=== PATIENT | male | born 1975 | race Hispanic/Latino ===

== ENCOUNTER 2017-12-12 14:36 | Inpatient (IN) | payer SELFPAY ==
[2017-12-12 15:30] LABS: Basophils % (Auto) 0.7 % (0.0-1.8); Hematocrit 47.4 % (35.5-45.6); Hemoglobin 16.5 gm/dl (11.8-15.2); Lymphocytes # (Auto) 0.8 K/mm3 (1.2-5.4); Lymphocytes % (Auto) 16.7 % (13.4-35.0); Mean Corpuscular HGB Conc 35 % (32-34); Mean Corpuscular Hemoglobin 32 pg (28-32); Mean Corpuscular Volume 92 fl (84-94); Monocytes # (Auto) 0.3 K/mm3 (0.0-0.8); Monocytes % (Auto) 5.2 % (0.0-7.3); Platelet Count 215 K/mm3 (140-440); Red Blood Count 5.17 M/mm3 (3.65-5.03)
[2017-12-12 15:42] LABS: INR 0.82 (0.87-1.13)
[2017-12-12 15:43] LABS: Partial Thromboplastin Time 27.8 Sec. (24.2-36.6)
[2017-12-12 15:44] LABS: Creatine Kinase MB 17.4 ng/mL (0.0-4.0)
[2017-12-12 15:45] LABS: Alanine Aminotransferase 37 units/L (7-56); Albumin 4.5 g/dL (3.9-5); BUN/Creatinine Ratio 6; Bilirubin,Direct 0.2 mg/dL (0-0.2); Blood Urea Nitrogen 4 mg/dL (9-20); Calcium 8.1 mg/dL (8.4-10.2); Hemolysis Index 8
[2017-12-12 15:47] LABS: Bilirubin,Urine NEG (Negative); Blood,Urine SM (Negative); Color,Urine Straw (Yellow); Protein,Urine <15 mg/dL mg/dL (Negative); Urobilinogen,Urine < 2.0 mg/dL (<2.0)
[2017-12-12 15:48] LABS: Amphetamine Screen,Urine PRESUMPTIVE NEGATIVE; Benzodiazepines Screen,Urine PRESUMPTIVE NEGATIVE; Cannabinoid Screen,Urine PRESUMPTIVE NEGATIVE; Cocaine Screen,Urine PRESUMPTIVE NEGATIVE; Methadone Screen,Urine PRESUMPTIVE NEGATIVE; Opiate Screen,Urine PRESUMPTIVE NEGATIVE
[2017-12-12] MEDS: VITAMIN B-1 PO SCH (16:10)
[2017-12-12] MEDS ORDERED: FOLVITE 1 MG, INFUVITE 10 ML in NACL 0.9% 1000 ML 1,000 ML IV ONE (16:20)
[2017-12-12] MEDS ORDERED: NACL 0.9% 1000 ML 1,000 ML IV ONE (16:34)
[2017-12-12] MEDS ORDERED: GEODON IM ONE (16:36)
--- NOTE | 2017-12-12 17:11 | Emergency Department Report ---
ED General Adult HPI - General Chief complaint: Alcohol Stated complaint: DRUNK Time Seen by Provider: 12/12/17 15:06 Source: patient, EMS Mode of arrival: Stretcher Limitations: Other - History of Present Illness Initial comments: Limited information is available on this patient as he is obviously intoxicated with alcohol. Apparently he lives in a wholesale room for the last 5 days drinking cases of beer. He does not have any specific complaints on my encounter. -: days(s) - Related Data Allergies Allergy/AdvReac Type Severity Reaction Status Date / Time No Known Allergies Allergy Unverified 12/12/17 14:48 ED Review of Systems ROS: Stated complaint: DRUNK Other details as noted in HPI Constitutional: denies: chills, fever Eyes: denies: eye pain, eye discharge, vision change ENT: denies: ear pain, throat pain Respiratory: denies: cough, wheezing Cardiovascular: denies: chest pain, palpitations Endocrine: no symptoms reported Gastrointestinal: denies: abdominal pain, nausea, diarrhea Genitourinary: denies: urgency, dysuria Musculoskeletal: denies: back pain, joint swelling, arthralgia Skin: denies: rash, lesions Neurological: headache (family told the nurse he had a [id number] headache ). denies: weakness, paresthesias Psychiatric: other (Limited secondary to alcohol intoxication) Hematological/Lymphatic: denies: easy bleeding, easy bruising ED Past Medical Hx - Past Medical History Previous Medical History?: Yes Hx Hypertension: Yes Hx HIV: Yes - Social History Smoking Status: Never Smoker Substance Use Type: Alcohol ED Physical Exam - General Limitations: Other General appearance: alert (abdomen alert and agitated poorly cooperative) - Head Head exam: Present: atraumatic, normocephalic - Eye Eye exam: Present: normal appearance, PERRL, EOMI. Absent: scleral icterus - ENT ENT exam: Present: mucous membranes moist - Neck Neck exam: Present: normal inspection. Absent: tenderness, meningismus - Respiratory Respiratory exam: Present: normal lung sounds bilaterally. Absent: respiratory distress - Cardiovascular Cardiovascular Exam: Present: regular rate, normal rhythm. Absent: systolic murmur, diastolic murmur, rubs, gallop - GI/Abdominal GI/Abdominal exam: Present: soft, normal bowel sounds. Absent: distended, tenderness, guarding, rebound, rigid - Rectal Rectal exam: Present: deferred - Extremities Exam Extremities exam: Present: normal inspection, normal capillary refill. Absent: tenderness, calf tenderness - Back Exam Back exam: Present: normal inspection. Absent: CVA tenderness (R), CVA tenderness (L), muscle spasm, paraspinal tenderness, vertebral tenderness - Neurological Exam Neurological exam: Present: alert, oriented X3, CN II-XII intact. Absent: motor sensory deficit - Psychiatric Psychiatric exam: Present: normal affect, normal mood - Skin Skin exam: Present: warm, dry, intact, normal color. Absent: rash ED Course Vital Signs 12/12/17 12/12/17 12/12/17 14:40 14:45 15:00 Temperature 98 F Pulse Rate 93 H Respiratory 16 Rate Blood Pressure 143/96 143/96 O2 Sat by Pulse 97 98 97 Oximetry 12/12/17 12/12/17 12/12/17 15:30 16:00 16:30 Temperature Pulse Rate Respiratory Rate Blood Pressure 143/96 143/96 134/87 O2 Sat by Pulse 94 98 95 Oximetry 12/12/17 12/12/17 12/12/17 16:56 17:00 17:30 Temperature Pulse Rate Respiratory 16 Rate Blood Pressure 137/90 145/93 O2 Sat by Pulse 98 97 97 Oximetry 12/12/17 12/12/17 18:01 18:33 Temperature Pulse Rate Respiratory Rate Blood Pressure 145/92 O2 Sat by Pulse 96 97 Oximetry - Reevaluation(s) Reevaluation #1: The patient was found have a mildly elevated CK which I do think is very consequential. His sodium was 128. He is somewhat volume depleted. He is going to receive normal saline and have his electrolytes checked again after a liter. We will see if he qualifies for medical admission. If he is medically cleared he is now 2013 (1013) status. Mental counselor will see him. He has been very poorly cooperative with nursing staff. He certainly cannot care for himself and requires treatment of his hyponatremia. He was given Geodon to enhance his cooperation. 12/12/17 17:12 Reevaluation #2: Patient required continued medical restraint. CT of his head was performed due to complaints of headache. I did not see anything acute. He will be admitted by Dr. Bonilla to the hospitalist service. His repeat sodium had improved somewhat to 130. 12/12/17 19:02 Reevaluation #3: A 1013 was executed. 12/12/17 19:03 ED Medical Decision Making - Lab Data Result diagrams: 12/12/17 15:24 12/12/17 17:15 Laboratory Results - last 24 hr 12/12/17 12/12/17 12/12/17 14:54 15:24 15:24 WBC 5.1 RBC 5.17 H Hgb 16.5 H Hct 47.4 H MCV 92 MCH 32 MCHC 35 H RDW 13.0 L Plt Count 215 Lymph % (Auto) 16.7 [place] % (Auto) 5.2 Eos % (Auto) 0.0 Baso % (Auto) 0.7 Lymph # 0.8 L [place] # 0.3 Eos # 0.0 Baso # 0.0 Seg Neutrophils % 77.4 H Seg Neutrophils # 3.9 PT 11.7 L INR 0.82 L APTT 27.8 Sodium Potassium Chloride Carbon Dioxide Anion Gap BUN Creatinine Estimated GFR BUN/Creatinine Ratio Glucose Calcium Magnesium Total Bilirubin Direct Bilirubin Indirect Bilirubin AST ALT Alkaline Phosphatase Total Creatine Kinase CK-MB (CK-2) CK-MB (CK-2) Rel Index Total Protein Albumin Albumin/Globulin Ratio Urine Color Urine Turbidity Urine pH Ur Specific [place] Urine Protein Urine Glucose (UA) Urine Ketones Urine Blood Urine Nitrite Urine Bilirubin Urine Urobilinogen Ur Leukocyte Esterase Urine WBC (Auto) Urine RBC (Auto) Urine Opiates Screen Urine Methadone Screen Ur Barbiturates Screen Ur Phencyclidine Scrn Ur Amphetamines Screen U Benzodiazepines Scrn Urine Cocaine Screen U Marijuana (THC) Screen Drugs of Abuse Note Plasma/Serum Alcohol 0.38 H 12/12/17 12/12/17 12/12/17 15:24 15:30 15:30 WBC RBC Hgb Hct MCV MCH MCHC RDW Plt Count Lymph % (Auto) [place] % (Auto) Eos % (Auto) Baso % (Auto) Lymph # [place] # Eos # Baso # Seg Neutrophils % Seg Neutrophils # PT INR APTT Sodium 128 L Potassium 4.0 Chloride 86.1 L Carbon Dioxide 25 Anion Gap 21 BUN 4 L Creatinine 0.7 L Estimated GFR > 60 BUN/Creatinine Ratio 6 Glucose 112 H Calcium 8.1 L Magnesium 1.90 Total Bilirubin 0.80 Direct Bilirubin 0.2 Indirect Bilirubin 0.6 AST 50 H ALT 37 Alkaline Phosphatase 64 Total Creatine Kinase 794 H CK-MB (CK-2) 17.4 H CK-MB (CK-2) Rel Index 2.1 Total Protein 6.9 Albumin 4.5 Albumin/Globulin Ratio 1.9 Urine Color Straw Urine Turbidity Clear Urine pH 7.0 Ur Specific [place] 1.003 Urine Protein <15 mg/dl Urine Glucose (UA) Neg Urine Ketones Tr Urine Blood Sm Urine Nitrite Neg Urine Bilirubin Neg Urine Urobilinogen < 2.0 Ur Leukocyte Esterase Neg Urine WBC (Auto) 1.0 Urine RBC (Auto) 2.0 Urine Opiates Screen Presumptive negative Urine Methadone Screen Presumptive negative Ur Barbiturates Screen Presumptive negative Ur Phencyclidine Scrn Presumptive negative Ur Amphetamines Screen Presumptive negative U Benzodiazepines Scrn Presumptive negative Urine Cocaine Screen Presumptive negative U Marijuana (THC) Screen Presumptive negative Drugs of Abuse Note Disclamer Plasma/Serum Alcohol - Radiology Data Radiology results: report reviewed (CT head no acute process) Critical care attestation.: If time is entered above; I have spent that time in minutes in the direct care of this critically ill patient, excluding procedure time. ED Disposition Clinical Impression: Alcohol abuse, Hyponatremia, Volume depletion, Delirium due to medical condition with behavioral disturbance Alcohol intoxication Qualifiers: Complication of substance-induced condition: with unspecified complication Qualified Code(s): F10.929 - Alcohol use, unspecified with intoxication, unspecified Disposition: DC-09 OP ADMIT IP TO THIS HOSP Is pt being admited?: Yes Does the pt Need Aspirin: Yes Condition: Stable Referrals: PRIMARY CARE, [Primary Care Provider] - 3-5 Days Time of Disposition: 19:04
[2017-12-12 17:50] LABS: BUN/Creatinine Ratio 5; Blood Urea Nitrogen 3 mg/dL (9-20); Calcium 8.1 mg/dL (8.4-10.2); Hemolysis Index 17
--- NOTE | 2017-12-12 18:33 | Cat Scan Report ---
FINAL REPORT EXAM: CT HEAD/BRAIN WO CON HISTORY: headache COMPARISON: None available. TECHNIQUE: Axial images obtained skull base through vertex. FINDINGS: No acute intracranial hemorrhage, midline shift or pathologic extra axial fluid collection. Ventricles and cisterns are normal in size and configuration for the patient's age. Perdomo-white differentiation preserved. Calvarium grossly intact. Ocular globes are grossly unremarkable. Minimal mucosal thickening the paranasal sinuses. Mastoid air cells are clear. IMPRESSION: No grossly acute intracranial abnormality.
[2017-12-12] MEDS ORDERED: PROVENTIL IH PRN (18:47)
[2017-12-12] MEDS ORDERED: DULCOLAX PR PRN (18:47)
[2017-12-12] MEDS ORDERED: MILK OF MAGNESIA PO PRN (18:47)
--- NOTE | 2017-12-12 18:59 | History and Physical Report ---
History of Present Illness Chief complaint: confused History of present illness: 42 YO Male with HIV, HTN, ETOH Abuse presents to ED for evaluation. Pt confused , and unable to provide history, but patient is able to protect his airway. Pt history taken from EMS and ED staff. As per EMS, patient has been binge drinking beer. Pt was found in his hotel room confused and lethargic, with 5 cases of empty beer cans. Pt transported to [facility] for further care and evaluation. No reports of fever, chills, CP, palpitations, NVD, Syncope, trauma , or recent ill contacts. Pt seen and evaluated in ED and found to have Encephalopathy, and well as ETOH Intoxication Delirium. Pt placed on 1013 and 1: 1 sitter assigned. Pt initiated on CIWA protocol. No psychiatric evaluation at this time. Past History Past Medical History: HIV/AIDS, hypertension Past Surgical History: No surgical history, Other (reviewed) Social history: single Family history: no significant family history (reviewed) Medications and Allergies Allergies Allergy/AdvReac Type Severity Reaction Status Date / Time No Known Allergies Allergy Unverified 12/12/17 14:48 Active Meds: Active Medications Acetaminophen (Tylenol) 650 mg PO Q4H PRN PRN Reason: Pain MILD(1-3)/Fever >100.5/SOLITARIO Albuterol (Proventil) 2.5 mg IH Q4HRT PRN PRN Reason: Shortness Of Breath Bisacodyl (Dulcolax) 10 mg MI QDAY PRN PRN Reason: Constipation unrelieved by MOM Folic Acid 1 mg/ Multivitamins /Minerals 10 ml/ Sodium Chloride 1,010.2 mls @ 250 mls/hr IV ONCE.ED ONE Stop: 12/12/17 20:22 Last Admin: 12/12/17 16:10 Dose: 250 mls/hr Lorazepam (Ativan) 2 mg IV Q1H PRN PRN Reason: CIWA-Ar 8-15 Magnesium Hydroxide (Milk Of Magnesia) 30 ml PO Q4H PRN PRN Reason: Constipation Ondansetron HCl (Zofran) 4 mg IV Q8H PRN PRN Reason: N/V unrelieved by Reglan Thiamine HCl (Vitamin B-1) 100 mg PO QDAY [facility] Last Admin: 12/12/17 16:10 Dose: 100 mg Review of Systems ROS unobtainable: due to mental status Exam - Constitutional Vitals: Temp Pulse Resp BP Pulse Ox 98 F 93 H 16 145/92 97 12/12/17 14:45 12/12/17 14:45 12/12/17 16:56 12/12/17 18:33 12/12/17 18:33 General appearance: Present: mild distress, disheveled - EENT Eyes: Present: PERRL ENT: hearing intact, clear oral mucosa - Neck Neck: Present: supple, normal ROM - Respiratory Respiratory effort: normal Respiratory: bilateral: CTA - Cardiovascular Heart Sounds: Present: S1 & S2. Absent: rub, click - Extremities Extremities: pulses symmetrical, No edema Peripheral Pulses: within normal limits - Abdominal General gastrointestinal: Present: soft, non-tender, non-distended, normal bowel sounds Male genitourinary: Present: normal - Integumentary Integumentary: Present: clear, dry, clammy, decreased turgor - Musculoskeletal Musculoskeletal: gait normal, strength equal bilaterally - Psychiatric Psychiatric: no appropriate mood/affect, no intact judgment & insight, no memory intact, no cooperative, agitated - Neurologic Neurologic: CNII-XII intact, moves all extremities Results - Labs CBC & Chem 7: 12/12/17 15:24 12/12/17 17:15 Labs: Abnormal lab results 12/12/17 12/12/17 12/12/17 Range/Units 14:54 15:24 15:24 RBC 5.17 H (3.65-5.03) M/mm3 Hgb 16.5 H (11.8-15.2) gm/dl Hct 47.4 H (35.5-45.6) % MCHC 35 H (32-34) % RDW 13.0 L (13.2-15.2) % Lymph # 0.8 L (1.2-5.4) K/mm3 Seg Neutrophils % 77.4 H (40.0-70.0) % PT 11.7 L (12.2-14.9) Sec. INR 0.82 L (0.87-1.13) Sodium (137-145) mmol/L Chloride (98-107) mmol/L BUN (9-20) mg/dL Creatinine (0.8-1.5) mg/dL Glucose (75-100) mg/dL Calcium (8.4-10.2) mg/dL AST (5-40) units/L Total Creatine Kinase (55-170) units/L CK-MB (CK-2) (0.0-4.0) ng/mL Plasma/Serum Alcohol 0.38 H (0-0.07) % 12/12/17 12/12/17 Range/Units 15:24 17:15 RBC (3.65-5.03) M/mm3 Hgb (11.8-15.2) gm/dl Hct (35.5-45.6) % MCHC (32-34) % RDW (13.2-15.2) % Lymph # (1.2-5.4) K/mm3 Seg Neutrophils % (40.0-70.0) % PT (12.2-14.9) Sec. INR (0.87-1.13) Sodium 128 L 130 L (137-145) mmol/L Chloride 86.1 L 89.3 L (98-107) mmol/L BUN 4 L 3 L (9-20) mg/dL Creatinine 0.7 L 0.6 L (0.8-1.5) mg/dL Glucose 112 H 112 H (75-100) mg/dL Calcium 8.1 L 8.1 L (8.4-10.2) mg/dL AST 50 H (5-40) units/L Total Creatine Kinase 794 H (55-170) units/L CK-MB (CK-2) 17.4 H (0.0-4.0) ng/mL Plasma/Serum Alcohol (0-0.07) % Assessment and Plan - Patient Problems (1) Alcohol intoxication delirium Current Visit: Yes Status: Acute Plan to address problem: CIWA protocol, IVF resuscitation, banana bag, Neuro checks, aspiration precautions, seizure precautions. [address], 1:1 sitter (2) Encephalopathy Current Visit: Yes Status: Acute Plan to address problem: CT Head, Neuro checks, IVF resuscitation, (3) HIV disease Current Visit: Yes Status: Acute Plan to address problem: CT head, supportive care, Outpatient ID F/U (4) HTN (hypertension) Current Visit: Yes Status: Acute Qualifiers: Hypertension type: essential hypertension Qualified Code(s): I10 - Essential (primary) hypertension Plan to address problem: monitor bp q shift, (5) Hyponatremia Current Visit: Yes Status: Acute Plan to address problem: IVF resuscitation, monitor uop q shift, serial bmp, (6) DVT prophylaxis Current Visit: Yes Status: Acute
[2017-12-12] MEDS ORDERED: BABY ASPIRIN PO ONE (19:04)
[2017-12-12] MEDS ORDERED: VITAMIN B-1 100 MG, FOLVITE 1 MG, INFUVITE 10 ML in NACL 0.9% 1000 ML 1,000 ML IV ONE (19:17)
[2017-12-12] MEDS: NACL 0.9% 1000 ML 1,000 ML IV ONE ×2 (19:22→20:00)
[2017-12-12] MEDS: ATIVAN IV PRN ×3 (19:22→23:31)
[2017-12-12] MEDS: ZOFRAN IV PRN (19:31)
--- NOTE | 2017-12-12 19:42 | XRay Report ---
FINAL REPORT EXAM: XR CHEST 1V AP HISTORY: hypertension COMPARISON: None available. FINDINGS: Frontal view(s) of the chest obtained. Cardiac silhouette within normal limits. No gross consolidation or effusion. No pneumothorax. IMPRESSION: No grossly acute findings.
[2017-12-12] MEDS ORDERED: ATIVAN ONE (20:33)
[2017-12-12] MEDS: TYLENOL PO PRN (23:29)
[2017-12-13] MEDS: ATIVAN IV PRN ×6 (01:31→20:34)
[2017-12-13] MEDS: TYLENOL PO PRN ×2 (06:05→20:32)
[2017-12-13 06:39] LABS: BUN/Creatinine Ratio 7; Blood Urea Nitrogen 5 mg/dL (9-20); Calcium 8.3 mg/dL (8.4-10.2); Hemolysis Index 7
--- NOTE | 2017-12-13 08:45 | Progress Note ---
Assessment and Plan Assessment and plan: Acute alcohol intoxication. patient admitted to med/surg floor. Neurochecks, supportive care. he is on CIWA protocol. Ativan for CIWA. HIV/AIDS. Details unclear. Hyponatremia. This is now resolved. Continue iv fluids Hypertension. On Lopressor BID. BP stable DVT prophylaxis with heparin subcut. History Interval history: Anxious, no chest pain, no fever Hospitalist Physical - Physical exam Narrative exam: Gen appearance: Not in acute distress, lying in bed HEENT:Normocephalic,atraumatic Neck:supple, no JVD Lungs: Clear to auscultation bilaterally, no crackles , no wheeze Heart: S1 and S2 regular, no murmurs, rubs or gallop Abdomen: soft, non tender, non distended, normal bowel sounds Ext: No edema, no clubbing, no cyanosis Neuro: Awake,alert,oriented x 3, normal speech, no focal signs Psych:Anxious - Constitutional Vitals: Temp Pulse Resp BP Pulse Ox 99.0 F 116 H 22 125/65 97 12/13/17 04:19 12/13/17 04:19 12/13/17 06:05 12/13/17 04:19 12/13/17 04:19 Results - Labs CBC & Chem 7: 12/12/17 15:24 12/13/17 05:55 Labs: Laboratory Last Values WBC 5.1 K/mm3 (4.5-11.0) 12/12/17 15:24 RBC 5.17 M/mm3 (3.65-5.03) H 12/12/17 15:24 Hgb 16.5 gm/dl (11.8-15.2) H 12/12/17 15:24 Hct 47.4 % (35.5-45.6) H 12/12/17 15:24 MCV 92 fl (84-94) 12/12/17 15:24 MCH 32 pg (28-32) 12/12/17 15:24 MCHC 35 % (32-34) H 12/12/17 15:24 RDW 13.0 % (13.2-15.2) L 12/12/17 15:24 Plt Count 215 K/mm3 (140-440) 12/12/17 15:24 Lymph % (Auto) 16.7 % (13.4-35.0) 12/12/17 15:24 [place] % (Auto) 5.2 % (0.0-7.3) 12/12/17 15:24 Eos % (Auto) 0.0 % (0.0-4.3) 12/12/17 15:24 Baso % (Auto) 0.7 % (0.0-1.8) 12/12/17 15:24 Lymph # 0.8 K/mm3 (1.2-5.4) L 12/12/17 15:24 [place] # 0.3 K/mm3 (0.0-0.8) 12/12/17 15:24 Eos # 0.0 K/mm3 (0.0-0.4) 12/12/17 15:24 Baso # 0.0 K/mm3 (0.0-0.1) 12/12/17 15:24 Seg Neutrophils % 77.4 % (40.0-70.0) H 12/12/17 15:24 Seg Neutrophils # 3.9 K/mm3 (1.8-7.7) 12/12/17 15:24 PT 11.7 Sec. (12.2-14.9) L 12/12/17 15:24 INR 0.82 (0.87-1.13) L 12/12/17 15:24 APTT 27.8 Sec. (24.2-36.6) 12/12/17 15:24 Sodium 139 mmol/L (137-145) D 12/13/17 05:55 Potassium 4.0 mmol/L (3.6-5.0) 12/13/17 05:55 Chloride 96.8 mmol/L (98-107) L 12/13/17 05:55 Carbon Dioxide 22 mmol/L (22-30) 12/13/17 05:55 Anion Gap 24 mmol/L 12/13/17 05:55 BUN 5 mg/dL (9-20) L 12/13/17 05:55 Creatinine 0.7 mg/dL (0.8-1.5) L 12/13/17 05:55 Estimated GFR > 60 ml/min 12/13/17 05:55 BUN/Creatinine Ratio 7 % 12/13/17 05:55 Glucose 82 mg/dL (75-100) 12/13/17 05:55 Calcium 8.3 mg/dL (8.4-10.2) L 12/13/17 05:55 Magnesium 1.90 mg/dL (1.7-2.3) 12/12/17 15:24 Total Bilirubin 0.80 mg/dL (0.1-1.2) 12/12/17 15:24 Direct Bilirubin 0.2 mg/dL (0-0.2) 12/12/17 15:24 Indirect Bilirubin 0.6 mg/dL 12/12/17 15:24 AST 50 units/L (5-40) H 12/12/17 15:24 ALT 37 units/L (7-56) 12/12/17 15:24 Alkaline Phosphatase 64 units/L (35-129) 12/12/17 15:24 Total Creatine Kinase 794 units/L (55-170) H 12/12/17 15:24 CK-MB (CK-2) 17.4 ng/mL (0.0-4.0) H 12/12/17 15:24 CK-MB (CK-2) Rel Index 2.1 (0-4) 12/12/17 15:24 Total Protein 6.9 g/dL (6.3-8.2) 12/12/17 15:24 Albumin 4.5 g/dL (3.9-5) 12/12/17 15:24 Albumin/Globulin Ratio 1.9 % 12/12/17 15:24 Urine Color Straw (Yellow) 12/12/17 15:30 Urine Turbidity Clear (Clear) 12/12/17 15:30 Urine pH 7.0 (5.0-7.0) 12/12/17 15:30 Ur Specific [place] 1.003 (1.003-1.030) 12/12/17 15:30 Urine Protein <15 mg/dl mg/dL (Negative) 12/12/17 15:30 Urine Glucose (UA) Neg mg/dL (Negative) 12/12/17 15:30 Urine Ketones Tr mg/dL (Negative) 12/12/17 15:30 Urine Blood Sm (Negative) 12/12/17 15:30 Urine Nitrite Neg (Negative) 12/12/17 15:30 Urine Bilirubin Neg (Negative) 12/12/17 15:30 Urine Urobilinogen < 2.0 mg/dL (<2.0) 12/12/17 15:30 Ur Leukocyte Esterase Neg (Negative) 12/12/17 15:30 Urine WBC (Auto) 1.0 /HPF (0.0-6.0) 12/12/17 15:30 Urine RBC (Auto) 2.0 /HPF (0.0-6.0) 12/12/17 15:30 Urine Opiates Screen Presumptive negative 12/12/17 15:30 Urine Methadone Screen Presumptive negative 12/12/17 15:30 Ur Barbiturates Screen Presumptive negative 12/12/17 15:30 Ur Phencyclidine Scrn Presumptive negative 12/12/17 15:30 Ur Amphetamines Screen Presumptive negative 12/12/17 15:30 U Benzodiazepines Scrn Presumptive negative 12/12/17 15:30 Urine Cocaine Screen Presumptive negative 12/12/17 15:30 U Marijuana (THC) Screen Presumptive negative 12/12/17 15:30 Drugs of Abuse Note Disclamer 12/12/17 15:30 Plasma/Serum Alcohol 0.38 % (0-0.07) H 12/12/17 14:54
[2017-12-13] MEDS ORDERED: NON-FORMULARY (Omeprazole [Omeprazole] 40 MG) PO SCH (10:00)
[2017-12-13] MEDS: THERAGRAN Tab PO SCH (10:35)
[2017-12-13] MEDS: LOPRESSOR PO SCH ×2 (10:35→22:40)
[2017-12-13] MEDS: FOLVITE PO SCH (10:35)
[2017-12-13] MEDS: VITAMIN B-1 PO SCH (10:35)
[2017-12-13] MEDS: PROTONIX PO SCH (11:37)
[2017-12-13] MEDS: EFFEXOR XR PO SCH (12:26)
[2017-12-13] MEDS: ZOFRAN IV PRN (20:31)
[2017-12-13] MEDS ORDERED: DESYREL PO SCH (22:00)
[2017-12-14 05:40] LABS: Hematocrit 45.9 % (35.5-45.6); Hemoglobin 15.4 gm/dl (11.8-15.2); Mean Corpuscular HGB Conc 34 % (32-34); Mean Corpuscular Hemoglobin 31 pg (28-32); Mean Corpuscular Volume 93 fl (84-94); Platelet Count 180 K/mm3 (140-440); Red Blood Count 4.92 M/mm3 (3.65-5.03); Red Cell Distribution Width 12.9 % (13.2-15.2)
[2017-12-14 05:51] LABS: BUN/Creatinine Ratio 6; Blood Urea Nitrogen 4 mg/dL (9-20); Calcium 8.7 mg/dL (8.4-10.2); Hemolysis Index 6
[2017-12-14 07:43] VITALS: BP 135/86
[2017-12-14] MEDS ORDERED: D5NS 1,000 ML IV SCH (08:00)
[2017-12-14] MEDS: EFFEXOR XR PO SCH (09:42)
[2017-12-14] MEDS: FOLVITE PO SCH (09:42)
[2017-12-14] MEDS: PROTONIX PO SCH (09:42)
[2017-12-14] MEDS: LOPRESSOR PO SCH (09:42)
[2017-12-14] MEDS: ATIVAN IV PRN (09:43)
[2017-12-14] MEDS: THERAGRAN Tab PO SCH (09:43)
[2017-12-14] MEDS: VITAMIN B-1 PO SCH (09:43)
--- NOTE | 2017-12-14 09:49 | Discharge Summary ---
Providers - Providers Date of Admission: 12/12/17 18:47 Date of discharge: 12/14/17 Attending physician: MAURY CHAVEZ Primary care physician: ELIE RENTERIA MD Hospitalization Condition: Fair Disposition: DC-01 TO HOME OR SELFCARE Exam - Constitutional Vitals: Temp Pulse Resp BP Pulse Ox 99.0 F 77 15 135/86 91 12/14/17 07:39 12/14/17 07:39 12/14/17 07:39 12/14/17 07:39 12/14/17 09:38 Plan Activity: no driving until cleared by PCP Additional Instructions: 1.Follow up with PCP or [facility] in 1 week. Follow up with: PRIMARY CARE, [Primary Care Provider] - 3-5 Days Prescriptions: Folic Acid [Folvite] 1 mg PO DAILY #30 tablet Thiamine [Vitamin B-1] 100 mg PO QDAY #30 tablet
[2017-12-14] MEDS: TYLENOL PO PRN (10:33)
== END 2017-12-14 15:30 | disposition home or self-care (01) | DRG 896 ==
LOC: ED 14:36 → 3A 18:47
PROVIDERS: ADMIT Internal Medicine; ATTEND Internal Medicine
DX: F10.121 Alcohol abuse with intoxication delirium (principal); G93.40 Encephalopathy, unspecified; B20 Human immunodeficiency virus [HIV] disease; E87.1 Hypo-osmolality and hyponatremia; I10 Essential (primary) hypertension; E86.9 Volume depletion, unspecified; Y90.9 Presence of alcohol in blood, level not specified
CPT/HCPCS: 36415; 70450; 71045; 80048; 80074; 80307; 80320; 81001; 82550; 82553; 83735; 84100; 85025; 85027; 85610; 85730; 96365; 96366; 96372; 96375; G0480; J2060; J2405; J3486; J7030